=== PATIENT | female | born 1980 | race Caucasian/White ===

== ENCOUNTER 2024-03-25 16:00 | Emergency (ER) | payer MEDICAID, OTHER ==
[~2024-03-25] VITALS: Ht 165.1 cm; Wt 63.6 kg
[2024-03-25 16:59] VITALS: BP 146/95; TEMP 99.1
[2024-03-25 17:24] LABS: Basophils # (auto) 0.1 10 ^3/uL (0-0.2); Eosinophils # (auto) 0 10 ^3/uL (0-0.8); Hemoglobin 11.3 g/dL (12.2-16.2); Lymphocytes # (auto) 1.7 10 ^3/uL (0.4-5.4); Lymphocytes % (auto) 32.3 % (10.0-50.0)
[2024-03-25] MEDS: SODIUM CHLORIDE 0.9% 1,000 ML IV ONE ×3 (17:24→20:15)
[2024-03-25] MEDS: THIAMINE HCL 100 MG TAB PO ONE (17:24)
[2024-03-25 17:26] VITALS: PULSE 97; RESP 15; O2SAT 97
[2024-03-25 17:26] LABS: Basophils % (auto) 2.1 % (0.0-2.0); Eosinophils % (auto) 0.4 % (0.0-7.0); Hematocrit 35.8 % (36.0-46.0); Mean Corpuscular Hemoglobin 24.7 pg (28.0-32.0); Mean Corpuscular Hgb Conc. 31.5 g/dL (32.0-36.0); Mean Corpuscular Volume 78.2 fL (80.0-100.0); Monocytes # (auto) 0.7 10 ^3/uL (0-1.3); Monocytes % (auto) 13.5 % (0.0-12.0); Neutrophils # (auto) 2.8 10 ^3/uL (1.6-8.6); Neutrophils % (auto) 51.7 % (37.0-80.0); Nucleated Red Blood Cells % 0.1 %; Platelet Count (auto) 161 10^3/uL (140-450); Red Blood Cells 4.58 10^6/uL (4.0-5.20); Red Cell Distribution Width 19.3 % (11.8-14.3); White Blood Cell 5.4 10^3/uL (4.4-10.8)
[2024-03-25 17:40] VITALS: PULSE 97
[2024-03-25 17:49] LABS: Alanine Aminotransferase 26 U/L (7-40); Albumin 3.9 g/dL (3.2-4.8); Anion Gap 10 (5-15); Chloride 105 mmol/L (98-107); Glucose 99 mg/dL (74-106); Magnesium 1.7 mg/dL (1.6-2.6); Potassium 4.4 mmol/L (3.5-5.1)
[2024-03-25 17:50] LABS: Bilirubin, Total 0.5 mg/dL (0.2-1.0); Total Protein 7.5 g/dL (5.7-8.2)
--- NOTE | 2024-03-25 18:03 | ED.PDOC ---
Altered Mental Status HPI Comments HPI: Poor Historian. 43-year-old female with a history of alcohol abuse brought in by ambulance from home. Patient has been drinking heavily at least three beers per day. She was dropped off by a friend to her house. Summer the house noted that she is intoxicated and called 911. They brought her here for evaluation. Patient denies any pain or any acute focal neurological deficits denies any fall or trauma. Vitals: BP: 174/115 HR: 108 Temp: 97.7 F RR: 20 SPO2: 98% RA Past Medical History: ETOH abuse Past Surgical History: REVIEW OF SYSTEMS: CONSTITUTIONAL: Denies acute: fever, diaphoresis, chills, HEAD: Denies acute: headache, photophobia Eyes: Denies acute: Double vision, vision loss, eye pain, eye discharge. EARS: Denies acute: tinnitus, hearing loss, ear discharge, ear pain, THROAT: Denies acute: sore throat, swelling, difficulty swallowing , pain with swallowing, change in voice. NECK: Denies acute: neck pain, neck swelling, stiff neck. HEART: Denies acute : chest pain, palpitations, LUNGS: Denies acute: SOB, wheezing, cough, hemoptysis ABDOMEN: Denies acute: abdominal pain, Nausea, Vomiting, diarrhea, melena , hematemesis, hematochezia SKIN: Denies acute: rash, redness, lesions, itchiness. EXTREMITIES: Denies acute: calf pain, numbness, tingling, weakness, denies pain in extremity. Denies acute: Low back pain. Neuro: Denies acute: focal neurological deficit, motor or sensory focal neurological deficit, tremors, seizure like activity, confusion, dizziness, change in mental status, loss of bowel or bladder function, cauda equina like symptoms. : Denies acute: dysuria, hematuria, flank pain, increase in urinary frequency. PSYCH: Denies acute: hallucination, suicidal ideation, homicidal ideation. FEMALE: Denies acute: abnormal vaginal bleeding, foul odor, unusual discharge. PHYSICAL EXAM: General: no acute distress, awake and alert. Head: normocephalic, atraumatic. Neck: supple, trachea is midline, no swelling. Throat: Normal phonation. Eyes:, no erythema, no purulent discharge, no proptosis, no icterus. Heart: regular rate, regular rhythm, no significant murmur appreciated. Lungs: no apparent respiratory distress, Able to speak in full sentences. No wheezing, no rhonchi, no crackles. No stridors Clear to auscultation bilaterally. Abdomen: non tender to palpation, non distended, soft, no guarding, no rebound, + bowel sounds. Neuro: Awake, Alert, oriented to name, self, situation, follows commands GCS=15. Speech is normal. Skin: no petechia, no purpura, no cyanosis, non-pale, not jaundice. Lower extremities: --no - Pitting edema no deformity, no focal swelling, no calf TTP. Makes eye contact. moves all four extremities. Face: no apparent facial droop. Chief Complaint: ETOH Time Seen by MD: 16:11 Primary Care Provider: NONE Reviewed Notes: Nurses Notes, Medications, Allergies Allergies: Coded Allergies: Amoxicillin (Verified Allergy, Unknown, 03/25/24) Information Source: Patient, Emergency Med Personnel Mode of Arrival: EMS Was a procedure done? Was a procedure done?: No Differential Diagnosis (ALOC) Differential Diagnosis: Closed Head Injury, Drug Overdose, ETOH Intoxication X-Ray, Labs, Meds, VS Vital Signs Date Time Temp Pulse Resp B/P (MAP) Pulse Ox O2 Delivery O2 Flow Rate FiO2 03/25/24 17:40 97 03/25/24 17:26 97 15 97 Room Air* 0 21 03/25/24 16:59 99.1 105 15 146/95 (112) 99 99.1 03/25/24 16:10 97.7 108 20 174/115 (134) 98 Lab Test 03/25/24 20:53 03/25/24 19:17 03/25/24 17:00 Range/Units Plasma/Serum Blood Alcohol 363.6 H 503.8 *H <10 mg/dL Lactic Acid Level 2.5 *H 2.9 *H 0.4-2.0 mmol/L White Blood Count 5.4 4.4-10.8 10^3/uL Red Blood Count 4.58 4.0-5.20 10^6/uL Hemoglobin 11.3 L 12.2-16.2 g/dL Hematocrit 35.8 L 36.0-46.0 % Mean Corpuscular Volume 78.2 L 80.0-100.0 fL Mean Corpuscular Hemoglobin 24.7 L 28.0-32.0 pg Mean Corpuscular Hemoglobin Concent 31.5 L 32.0-36.0 g/dL Red Cell Distribution Width 19.3 H 11.8-14.3 % Platelet Count 161 140-450 10^3/uL Mean Platelet Volume 6.7 L 6.9-10.8 fL Neutrophils (%) (Auto) 51.7 37.0-80.0 % Lymphocytes (%) (Auto) 32.3 10.0-50.0 % Monocytes (%) (Auto) 13.5 H 0.0-12.0 % Eosinophils (%) (Auto) 0.4 0.0-7.0 % Basophils (%) (Auto) 2.1 H 0.0-2.0 % Neutrophils # (Auto) 2.8 1.6-8.6 10 ^3/uL Lymphocytes # (Auto) 1.7 0.4-5.4 10 ^3/uL Monocytes # (Auto) 0.7 0-1.3 10 ^3/uL Eosinophils # (Auto) 0 0-0.8 10 ^3/uL Basophils # (Auto) 0.1 0-0.2 10 ^3/uL Nucleated Red Blood Cells 0.1 % Sodium Level 135 L 136-145 mmol/L Potassium Level 4.4 3.5-5.1 mmol/L Chloride Level 105 98-107 mmol/L Carbon Dioxide Level 20 20-31 mmol/L Anion Gap 10 5-15 Blood Urea Nitrogen < 5 L 9-23 mg/dL Creatinine 0.43 L 0.550-1.02 mg/dL Glomerular Filtration Rate Calc 123 >90 mL/min BUN/Creatinine Ratio 11.6 10.0-20.0 Serum Glucose 99 74-106 mg/dL Calcium Level 8.6 L 8.7-10.4 mg/dL Magnesium Level 1.7 1.6-2.6 mg/dL Total Bilirubin 0.5 0.2-1.0 mg/dL Aspartate Amino Transferase (AST) 63 H 13-40 U/L Alanine Aminotransferase (ALT) 26 7-40 U/L Alkaline Phosphatase 125 H 46-116 U/L Troponin I High Sensitivity < 3 L </=34 ng/L Total Protein 7.5 5.7-8.2 g/dL Albumin 3.9 3.2-4.8 g/dL Beta HCG, Quantitative 1.6 1.5-4.2 mIU/mL Current Medications Medications (Trade) Dose Ordered Sig/Tavon Route Start Time Stop Time Status Last Admin Sodium Chloride 1,000 ml @ 1,000 mls/hr Q1H ONCE IV 03/25/24 16:15 03/25/24 17:14 DC 03/25/24 17:24 Thiamine HCl 100 mg ONCE ONCE PO 03/25/24 16:15 03/25/24 16:16 DC 03/25/24 17:24 Sodium Chloride 1,000 ml @ 1,000 mls/hr Q1H ONCE IV 03/25/24 18:45 03/25/24 19:44 DC 03/25/24 18:59 [place] [id number] Ph: [phone] DIAGNOSTIC IMAGING Diagnostic Imaging Report : [id number] Signed PATIENT: MANA FOUNTAIN ACCT: [id number] UNIT: [id number] : 1980 LOC: ER ROOM / BED: / AGE / SEX: 43 / F ADM STATUS: REG ER SERVICE 1611 ORDERING PHYSICIAN: DORIE AU DO PROCEDURE(s): CXRP - CHEST PORTABLE REASON: etoh abuse ORDER NUMBER(s): [id number], ACCESSION NUMBER(s): [id number] CHEST RADIOGRAPH Indication: etoh abuse Technique: Single frontal view of the chest was obtained Comparison: None Findings/ IMPRESSION: Endotracheal tube projects terminating 7 cm superior to the paulette. Enteric tube side port projected slightly above the GE junction. Recommend advancing the enteric tube 5 cm and obtaining follow-up imaging. Left IJ CVC with tip terminating in the SVC. Mild cardiomegaly. No active cardiopulmonary disease. ATED BY: LILIA BASSETT DO DICTATED DATE/TIME: 03/25/242001 SIGNED BY: LILIA BASSETT DO SIGNED DATE/TIME: 03/25/242001 CC: Time of 1ST Reevaluation: 20:42 Reevaluation 1ST: Unchanged Patient Education/Counseling: Other Family Education/Counseling: No Family Present Departure 1 Departure Time of Disposition: 21:56 Impression: Primary Impression: Alcohol abuse Disposition: 07 LEFT AWOL/ELOPED Critical Care Note Critical Care Time?: No I personally scribed for DORIE AU DO ([facility]) on 03/25/24 at 20:42. Electronically submitted by Carmita Perales ([facility]). I personally scribed for DORIE AU DO ([facility]) on 03/25/24 at 21:56. Electronically submitted by Carmita Perales ([facility]). DORIE AU DO Mar 25, 2024 18:03
[2024-03-25 18:26] LABS: Alkaline Phosphatase 125 U/L (46-116); Aspartate Aminotransferase 63 U/L (13-40); BUN/Creatinine Ratio 11.6 (10.0-20.0); Blood Urea Nitrogen < 5 mg/dL (9-23); Calcium 8.6 mg/dL (8.7-10.4); Carbon Dioxide 20 mmol/L (20-31); Sodium 135 mmol/L (136-145)
[2024-03-25 18:29] LABS: Lactic Acid w/Reflex 2.9 mmol/L (0.4-2.0)
[2024-03-25 19:44] LABS: Blood Alcohol 503.8 mg/dL (<10)
--- NOTE | 2024-03-25 20:05 | DVH ---
CHEST RADIOGRAPH Indication: etoh abuse Technique: Single frontal view of the chest was obtained Comparison: None Findings/ IMPRESSION: Endotracheal tube projects terminating 7 cm superior to the paulette. Enteric tube side port projected slightly above the GE junction. Recommend advancing the enteric tube 5 cm and obtaining follow-up im aging. Left IJ CVC with tip terminating in the SVC. Mild cardiomegaly. No active cardiopulmonary dis ease.
== END 2024-03-25 21:28 | disposition left against medical advice (07) ==
LOC: ER 16:00 → EDBD 16:00 → ER 21:28
DX: F10.10 Alcohol abuse, uncomplicated (principal); Z88.0 Allergy status to penicillin; Z79.899 Other long term (current) drug therapy
CPT/HCPCS: 36415; 71045; 80053; 80320; 83605; 83735; 84484; 84702; 85025; 96360; 96361; 99284; J7030